=== PATIENT | male | born 1955 | race Caucasian/White ===

== ENCOUNTER 2018-03-13 07:03 | Day surgery (SDC) | payer BC, OTHER ==
[~2018-03-13] VITALS: Ht 175.3 cm; Wt 88.5 kg
[2018-03-13] VITALS (8 sets, daily range): BP systolic 121–138; BP diastolic 78–97
[2018-03-13] MEDS ORDERED: HEParin (CATH LAB) 2,000 ML IV ONE (07:10)
[2018-03-13] MEDS ORDERED: LIDOCAINE 1% INJ 20 ML 20 ML VIAL ONE (07:10)
[2018-03-13] MEDS ORDERED: NS IV 1000 ML 1,000 ML IV SCH ×2 (07:15→09:18)
[2018-03-13] MEDS ORDERED: LISI-552 PO (07:53)
[2018-03-13] MEDS ORDERED: ASPI-586 PO (07:53)
[2018-03-13 07:59] LABS: HEMOGLOBIN 14.6 G/DL (13.3-17.7); RED CELL DISTRIBUTION WIDTH 12.5 % (10.0-14.5)
[2018-03-13] MEDS ORDERED: MIDAZOLAM 5 MG/5 ML (VERSED) VIAL ONE (07:59)
[2018-03-13] MEDS ORDERED: fentaNYL INJECTION 100 MCG/2 ML AMP ONE (07:59)
[2018-03-13 08:13] LABS: INR 1.3 (0.8-1.4); PROTHROMBIN TIME PATIENT 15.9 SEC (12.2-14.7)
[2018-03-13 08:17] LABS: ALANINE AMINOTRANSFERASE 24 U/L (0-55); ALBUMIN 4.2 GM/DL (3.2-4.5); ALKALINE PHOSPHATASE 76 U/L (40-136); BILIRUBIN,TOTAL 0.7 MG/DL (0.1-1.0); BUN/CREATININE RATIO 16; CALCIUM 9.4 MG/DL (8.5-10.1); CARBON DIOXIDE 23 MMOL/L (21-32); CHLORIDE 107 MMOL/L (98-107); CHOLESTEROL 211 MG/DL (< 200); CREATININE SERUM 0.87 MG/DL (0.60-1.30); GFR ESTIMATED > 60; GLUCOSE 99 MG/DL (70-105); HDL CHOLESTEROL 46 MG/DL (40-60); POTASSIUM 4.3 MMOL/L (3.6-5.0); SODIUM 141 MMOL/L (135-145); TOTAL PROTEIN 7.4 GM/DL (6.4-8.2); TRIGLYCERIDES 118 MG/DL (<150); VLDL CHOLESTEROL 24 MG/DL (5-40)
[2018-03-13] MEDS ORDERED: ATOR40TA70 PO (09:23)
[2018-03-13] MEDS ORDERED: ASPI-999 PO (09:23)
--- NOTE | 2018-03-13 09:23 | Discharge Inst-Cardiology ---
Discharge Inst-Cardiac Discharge Medications New Medications: Aspirin (Aspirin) 81 Mg Tab.chew 81 MG PO DAILY for 90 Days, #90 TAB 3 Refills NS Atorvastatin Calcium (Atorvastatin Calcium) 40 Mg Tablet 40 MG PO DAILY for 90 Days, #90 TAB 3 Refills Continued Medications: Lisinopril (Lisinopril) 20 Mg Tablet 20 MG PO DAILY, TAB Discontinued Medications: Aspirin (Aspir 81) 81 Mg Tablet.dr 81 MG PO DAILY, TAB MIRIAM ALLISON MD FACP [facility] Mar 13, 2018 09:23
--- NOTE | 2018-03-13 09:24 | Discharge Inst-Post CATH ---
Discharge Inst-CATH/EP Post Cardiac Cath/EP D/C Inst Follow Up/Plan Follow up with Dr Ellsworth in 2 weeks CARDIAC CATH DISCHARGE INSTRUCTIONS *Hold Metformin for 48 hours post heart cath. ACTIVITY * Go Home directly and rest. * Limit activity of the leg (or wrist if it was used) for 7 days including aerobics, swimming, jogging, bicycling, etc. * Restrict stair-climbing for 7 days if possible, if not, climb up with your non -cath leg, then bring together on the same step. * Avoid lifting, pushing, pulling or excessive movement of the affected extremity for 7 days. * Customary sexual activity may be resumed after 2 days-use caution not to use a position that strains or causes pain to the affected extremity. * No driving for 24 hours. * NO SMOKING. * Avoid straining for bowel movements for 7 days. * Gentle walking on level ground is allowed. * Returning to work will depend on the type of procedure and the results. Your doctor will discuss this with you. CALL YOUR DOCTOR FOR ANY OF THE FOLLOWING: *If bleeding from the puncture site occurs- Apply gentle pressure to site with clean cloth and call your doctor or EMS. * If a knot or lump forms under the skin, increases in size, or causes pain. * If bruising appears to be worsening or moving further down your leg instead of disappearing. * Temperature above 101 F. CARE OF YOUR GROIN INCISION; * Bruising or purple discoloration of the skin near the puncture site is common. * You may shower only, no bathtub bathing for 5 days. Be careful to avoid slipping as your leg may feel stiff. * If a closure device was used on your femoral artery, please see the attached guide regarding care of the device and your leg. * Leave the dressing on, until removed by office staff. CARE OF YOUR WRIST INCISION; * Bruising or purple discoloration of the skin near the puncture site is common. * You may shower. * DO NOT submerge wrist. * Leave dressing on, until removed by office staff.. MIRIAM ELLSWORTH MD [facility] Mar 13, 2018 09:24
[2018-03-13] MEDS ORDERED: PATIENT MAY USE OWN MEDS, ALL PO SCH (09:30)
--- NOTE | 2018-03-13 09:37 | Cardiac Procedure Note-CS/ASA ---
Pre-Procedure Note Pre-Op Procedure Note H&P Reviewed The H&P was reviewed, patient examined and no changes noted. Date H&P Reviewed: Mar 13, 2018 Time H&P Reviewed: 08:45 Conscious Sedation Pre-Proced Time 08:45 ASA Score 3 For ASA 3 and 4: Consider anesthesia and medical clearance. Also, for patients with a history of failed moderate sedation consider anesthesia. Airway Lungs Heart ASA score ASA 1: a normal healthy patient ASA 2: a patient with a mild systemic disease (mid diabetes, controlled hypertension, obesity ASA 3: a patient with a severe systemic disease that limits activity (angina , COPD, prior Myocardial infarction) ASA 4: a patient with an incapacitating disease that is a constant threat to life (CHF, renal failure) ASA 5: a moribund patient not expected to survive 24 hrs. (ruptured aneurysm) ASA 6: a declared brain- patient whose organs are being harvested. For emergent operations, add the letter E after the classification Mallampati Classification Grade 2 Sedation Plan Analgesia, Amnesia, Plan communicated to team members, Discussed options with patient/fam, Discussed risks with patient/fam The patient is an appropriate candidate to undergo the planned procedure, sedation, and anesthesia. The patient immediately re-assessed prior to indication. MIRIAM ALLISON MD FACP [facility] Mar 13, 2018 09:37
--- NOTE | 2018-03-13 10:18 | CARDIAC CATHETERIZATION ---
DATE OF SERVICE: 03/13/2018 CARDIAC CATHETERIZATION REPORT INDICATIONS: The patient is a 62-year-old man with multiple coronary artery disease risk factors, who has been experiencing symptoms consistent with new onset angina. Cardiac catheterization was carried out today after having obtained an informed consent. PROCEDURE: He was brought to the cardiac catheterization laboratory in a fasting state. Right groin was prepared and draped in the usual sterile fashion. Lidocaine 1% local anesthesia. Modified Seldinger technique was used to advance a 5-Chadian sheath in the right femoral artery. A 5-Chadian JL4 catheter for left coronary angiography, 5-Chadian JR4 catheter for right angiography, 5-Chadian pigtail catheter was used for left heart catheterization and left ventricular angiography. Pigtail was pulled back to the aortic root and aortic root angiography was performed. The aortic root angiography was mainly performed to reevaluate the right coronary artery, which is of small caliber and prone to spasm with catheter engagement. Catheters were then removed. Angiography of the right femoral artery had been carried out through the sheath at the time of sheath insertion. At the end of the procedure, Mynx was used to achieve hemostasis. He tolerated the procedure well. HEMODYNAMICS: Left ventricular end-diastolic pressure following coronary angiography was 14 mmHg. There is no significant pressure gradient on pullback across the aortic valve. The ascending aortic pressure was 111/72 with a mean of 93 mmHg. LEFT VENTRICULAR ANGIOGRAPHY: Left ventricular angiography was carried out in the right anterior oblique projection. Global left ventricular systolic function appeared normal. No regional wall motion abnormalities are seen and ejection fraction is 60% to 65%. CORONARY ANGIOGRAPHY: Left main coronary artery is free of significant disease. Left anterior descending, left circumflex and right coronary arteries have diffuse mild to moderate plaque with stenoses of up to 30% to 40%. There does not appear to be severe focal stenosis. The right coronary artery is of a small caliber and prone to some spasm with catheter engagement. The right coronary artery was reevaluated with aortic root angiography and is found to be intact and of a very small caliber and nondominant. AORTIC ROOT ANGIOGRAPHY: Aortic root angiography did not indicate any significant aortic root enlargement, aneurysm or dissection. The right coronary artery is identified and is intact. The right coronary artery is nondominant and of a small caliber. CONCLUSIONS: 1. Coronary artery disease consisting of diffuse mild to moderate plaque within relatively small caliber coronary arteries. 2. Normal global left ventricular systolic function with ejection fraction of 60% to 65%. 3. Left ventricular end-diastolic pressure at the top limit of normal to mildly elevated. 4. No significant mitral regurgitation. DISCUSSION AND RECOMMENDATIONS: Based on the results of the study, it appears appropriate to continue a conservative approach. Risk factor modification has been reviewed and outpatient followup is advised. We are adding low dose aspirin and statin to the regimen. Job ID: [id number] DocumentID: [id number] Dictated Date: 03/13/2018 09:15:28 Spinning Frame Tender Date: 03/13/2018 10:17:42 Dictated By: MIRIAM ALLISON MD, MA, FACP, FACC,
== END 2018-03-13 12:30 | disposition home or self-care (01) ==
LOC: CATH 07:03 → SDC 09:39 → CATH 12:30
PROVIDERS: ATTEND Internal Medicine Cardiovascular Disease
DX: I25.10 Atherosclerotic heart disease of native coronary artery without angina pectoris (principal); I10 Essential (primary) hypertension; R53.83 Other fatigue; Z82.49 Family history of ischemic heart disease and other diseases of the circulatory system; Z79.82 Long term (current) use of aspirin; Z79.899 Other long term (current) drug therapy
CPT/HCPCS: 36415; 36430; 80053; 80061; 85027; 85610; 85730; 87081; 93458; 93567

== ENCOUNTER → 2018-03-30 | Outpatient (CLI) | payer BC, OTHER ==
[~2018-03-30] MED LIST: ASPI-586 PO; ASPI-999 PO; ATOR40TA70 PO; LISI-552 PO
== END ==
LOC: CARD 12:44
PROVIDERS: ATTEND Internal Medicine Cardiovascular Disease
DX: R53.83 Other fatigue (principal); R06.02 Shortness of breath; R07.9 Chest pain, unspecified; I10 Essential (primary) hypertension; Z82.49 Family history of ischemic heart disease and other diseases of the circulatory system
CPT/HCPCS: 93306

== ENCOUNTER → 2023-01-05 | Outpatient (CLI) | payer MEDICARE, OTHER ==
[~2023-01-05] MED LIST changes: -LISI-552 PO; +LISI20TA26 PO
== END ==
LOC: CARD 13:30
PROVIDERS: ATTEND Internal Medicine Cardiovascular Disease
DX: I25.10 Atherosclerotic heart disease of native coronary artery without angina pectoris (principal); R06.09 Other forms of dyspnea
CPT/HCPCS: 93306